=== PATIENT | male | born 2000 | race Two or more races ===

== ENCOUNTER 2022-06-18 12:38 | Outpatient (REF) | payer OTHER, SELFPAY ==
--- NOTE | ~2022-06-18 | CT_ITS ---
EXAMINATION: CT ANKLE WITHOUT CONTRAST, LEFT CLINICAL INFORMATION: Left ankle pain COMPARISON: None TECHNIQUE: A noncontrast CT of the left ankle is performed with sagittal and coronal reformats. In addition, 3-D reconstructed images are performed on an independent workstation under concurrent supervision. DLP: 130 FINDINGS: Diffuse subcutaneous edema surrounding the ankle and extending along the dorsum of the foot without a focal fluid collection. A 1.1 cm somewhat linear focus of relative increased density within the subcutaneous edema superficial to the lateral malleolus may represent a small hematoma. No acute fracture or malalignment. CT/CT ankle LT wo IV con IMPRESSION: 1. No acute osseous abnormality. 2. Diffuse subcutaneous edema surrounding the ankle and extending along the dorsum of the foot without a focal fluid collection. Possible small subcutaneous hematoma superficial to the lateral malleolus.
== END 2022-06-18 12:39 | disposition home or self-care (01) ==
LOC: HO.CT 12:38
PROVIDERS: PCP Pediatrics; Visit Provider Orthopaedic Surgery Foot and Ankle Surgery
DX: M25.572 Pain in left ankle and joints of left foot (principal)
CPT/HCPCS: 73700